=== PATIENT | male | born 1935 | race Caucasian/White ===

== ENCOUNTER 2021-06-06 23:14 | Observation (INO) | payer MEDICARE, OTHER ==
[~2021-06-06] VITALS: Ht 180.3 cm; Wt 80.2 kg
[2021-06-07 00:27] VITALS: BP 112/60
[2021-06-07] MEDS ORDERED: HYDROcodone/APAP 5/325MG 1 TAB TABLET PO PRN (00:30)
[2021-06-07 02:31] VITALS: BP 93/53
[2021-06-07 07:00] VITALS: BP 125/63
[2021-06-07] MEDS ORDERED: ACETAMINOPHEN 325 MG TABLET. PO PRN (08:30)
[2021-06-07] MEDS ORDERED: hydrALAZINE 20 MG/ML VIAL. IVP PRN (08:30)
[2021-06-07] MEDS ORDERED: ONDANSETRON PF 4 MG/2 ML VIAL. IVP PRN (08:30)
--- NOTE | 2021-06-07 08:31 | PDOC1 ---
History and Physical Date of Admission Date of Admission DATE: 06/07/21 TIME: 08:30 Identification/Chief Complaint Chief Complaint Confusion Source Source: Patient History of Present Illness History of Present Illness Mr Merino is an 85-year-old male with a past medical history significant for hypertension, hyperlipidemia and history of LLE stenting on on Xarelto who presents to the emergency department at [facility] in [place], [place] complaining of repeating himself and confusion. Per and daughter, patient last known well was 1300 on 06/06/21 in the afternoon. States that he was well, went outside to clean some snow off from around the house and when he came back inside confused and unable to answer questions appropriately. Denies any recent travel, traumas, illnesses, fevers, chest pain, abdominal pain, nausea, vomiting, diarrhea, dysuria, hematuria or blood in stool. Denies any alcohol or drug use. States he has been taking his medications as prescribed. 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 Menezes regularly who is his PCP. WBC 6.2, Hb 14.9, platelets 216, NA 142, K4.2, BUN 22, CR 1, glucose 72, lactic acid 1.3, LFTs within normal laboratory limits, history troponin is 10, albumin 3.5, INR 1.1, urinalysis bland, rapid COVID-19 negative, rapid influenza negative. EKG sinus rate of 60 bpm leftward axis otherwise normal intervals no ST segment elevations or depressions no TWI. Noncontrast CT head no acute hemorrhage. CTA head and neck with no large vessel occlusion Due to concern for new onset confusion patient was transferred to [facility] for neurologic evaluation. Seen bedside he has no focal neurologic deficits NIHSS is 0 for me and he recalls all the events 06/06/2021 and notes that he was repeating himself and that is the reason his sent him to the ED. 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 Past Medical History Cardiovascular: HTN, Hyperlipidemia Heme/Onc: Other (LLE PAD) Past Surgical History Past Surgical History: Tonsillectomy Family History Family History CVA Social History Smoke: No ALCOHOL: none Drugs: None Current Medications Current Medications Current Medications Acetaminophen/ Hydrocodone Bitart (Lortab 5/325) 1 tab PRN Q4HRS PRN PO MILD PAIN 1-3; Start 06/07/21 at 00:30 Allergies Allergies: Coded Allergies: No Known Drug Allergies (Unverified , 06/07/21) ROS General: No: Chills, Night Sweats, Fatigue, Malaise, Appetite, Other PSYCHOLOGICAL ROS: No: Anxiety, Behavioral Disorder, Concentration difficultie, Decreased libido, Depression, Disorientation, Hallucinations, Hostility, Irrita blity, Memory difficulties, Mood Swings, Obsessive thoughts, Physical abuse, Sexual abuse, Sleep disturbances, Suicidal ideation, Other Eyes: No Blurry vision, No Decreased vision, No Double vision, No Dry eyes, No Excessive tearing, No Eye Pain, No Itchy Eyes, No Loss of vision, No Photophobia, No Scotomata, No Uses contacts, No Uses glasses, No Other HEENT: No: Heacaches, Visual Changes, Hearing change, Nasal congestion, Nasal discharge, Oral lesions, Sinus pain, Sore Throat, Epistaxis, Sneezing, Snoring, Tinnitus, Vertigo, Vocal changes, Other ALLERGY AND IMMUNOLOGY: No: Hives, Insect Bite Sensitivity, Itchy/Watery Eyes, Nasal Congestion, Post Nasal Drip, Seasonal Allergies, Other Hematological and Lymphatic: No: Bleeding Problems, Blood Clots, Blood Transfusions, Brusing, Night Sweats, Pallor, Swollen Lymph Nodes, Other ENDOCRINE: No: Breast Changes, Galactorrhea, Hair Pattern Changes, Hot Flashes, Malaise/lethargy, Mood Swings, Palpitations, Polydipsia/polyuria, Skin Changes, Temperature Intolerance, Unexpected Weight Changes, Other Respiratory: No: Cough, Hemoptysis, Orthopnea, Pleuritic Pain, Shortness of breath, SOB with excertion, Sputum Changes, Stridor, Tachypnea, Wheezing, Other Cardiovascular: No Chest Pain, No Palpitations, No Orthopnea, No Paroxysmal Noc. Dyspnea, No Edema, No Lt Headedness, No Other Gastrointestinal: No Nausea, No Vomiting, No Abdominal Pain, No Diarrhea, No Constipation, No Melena, No Hematochezia, No Other Genitourinary: No Dysuria, No Frequency, No Incontinence, No Hematuria, No Retention, No Discharge, No Urgency, No Pain, No Flank Pain, No Other, No , No , No , No , No , No , No Musculoskeletal: No Gait Disturbance, No Joint Pain, No Joint Stiffness, No Joint Swelling, No Muscle Pain, No Muscular Weakness, No Pain In:, No Swelling In:, No Other Neurological: Yes Memory Loss; No Behavorial Changes, No Bowel/Bladder ControlChng, No Confusion, No Dizziness, No Gait Disturbance, No Headaches, No Impaired Coord/balance, No Numbness/Tingling, No Seizures, No Speech Problems, No Tremors, No Visual Changes, No Weakness, No Other Skin: No Dry Skin, No Eczema, No Hair Changes, No Lumps, No Mole Changes, No Mottling, No Nail Changes, No Pruritus, No Rash, No Skin Lesion Changes, No Other, No Acne Physical Exam General: Alert, Oriented X3, Cooperative, No acute distress HEENT: Atraumatic, PERRLA, EOMI, Mucous membr. moist/pink Lungs: Clear to auscultation, Normal air movement Heart: S1S2, RRR, no thrills, no rubs, no gallops, no murmurs Abdomen: Normal bowel sounds, Soft, No tenderness, No hepatosplenomegaly, No masses Rectal Exam: not examined Extremities: No clubbing, No cyanosis, No edema, Normal pulses, No tenderness/swelling Skin: No rashes, No breakdown, No significant lesion Neuro: Normal gait, Normal speech, Strength at 5/5 X4 ext, Normal tone, S ensation intact, Cranial nerves 3-12 NL, Reflexes 2+ Psych/Mental Status: Mental status NL, Mood NL Vitals Vitals Vital Signs Date Time Temp Pulse Resp B/P (MAP) Pulse Ox O2 Delivery O2 Flow Rate FiO2 06/07/21 07:00 97.6 57 16 125/63 (83) 98 Room Air 97.6 VTE Prophylaxis Ordered VTE Prophylaxis Devices: No VTE Pharmacological Prophylaxi: Yes Assessment/Plan Assessment/Plan A/P: Confusion - NIHSS 0 for me, likely transient global amnesia Dyspnea on exertion - has outpatient w/u. Negative cath in the last year Hypertension - cont home meds Hyperlipidemia - cont home meds History of LLE stenting on on Xarelto FEN - Regular diet PPX - ambulatory FULL CODE Dispo - observation Justifications for Admission Other Justification MICHELLE ARRIAGA MD Jun 07, 2021 08:31
[2021-06-07 11:00] VITALS: BP 125/70
[2021-06-07] MEDS ORDERED: RIVA10TA PO (11:56)
[2021-06-07] MEDS ORDERED: LEVO25TA4 PO (11:56)
[2021-06-07] MEDS ORDERED: ATOR40TA59 PO (11:56)
[2021-06-07] MEDS ORDERED: TAMS0.4C97 PO (11:56)
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
--- NOTE | 2021-06-07 14:06 | NUR ---
SS following for discharge planning. SS reviewed pt chart and discussed with pt RN. Pt is from home with spouse and is currently on room air. Neurology consulted. MRI ordered. SS will continue to follow for discharge planning.
[2021-06-07 14:56] VITALS: BP 121/65
--- NOTE | 2021-06-07 15:45 | RAD ---
MRI BRAIN WO History:Reason: transient global amnesia / Spl. Instructions: / History: Technique: Multiplanar, multi sequential MR imaging was performed of the brain without contrast. Comparison: None Findings: No acute infarct. No intracranial hemorrhage. No mass effect. No hydrocephalus. Mild brain parenchymal volume loss. Mild foci of FLAIR hyperintensities within the hemispheric white matter, most often due to chronic microvascular ischemia. Imaged orbits are unremarkable. Imaged paranasal sinuses and mastoid air cells are clear. Impression: 1. No acute intracranial abnormality. Electronically signed by: Vick Doll DO (06/07/2021 3:43 PM) [facility]
--- NOTE | 2021-06-07 17:21 | PDOC3 ---
Discharge Summary Brief Hospital Course Allergies Allergies Coded Allergies Type Severity Reaction Last Updated Verified No Known Drug Allergies 06/07/21 No Vital Signs Vital Signs Date Time Temp Pulse Resp B/P (MAP) Pulse Ox O2 Delivery O2 Flow Rate FiO2 06/07/21 14:56 97.6 76 20 121/65 (83) 98 Room Air 97.6 Brief Hospital Course Mr. Merino is a 85 old [sex] who presented with [ ] Discharge Information Scheduled Atorvastatin Calcium (Atorvastatin Calcium) 40 Mg Tablet, 1 TAB PO DAILY for high cholesterol , #30 Ref 5 (Reported) Entered as Reported by: LACHO TIRADO on 06/07/211155 Last Action: New Order on 06/07/211155 by LACHO TIRADO Levothyroxine Sodium (Levothyroxine Sodium) 25 Mcg Tablet, 10 MCG PO DAILYAC for THYROID SUPPLEMENT, #30 Ref 0 (Reported) Entered as Reported by: LACHO TIRADO on 06/07/211155 Last Action: New Order on 06/07/211155 by LACHO TIRADO Rivaroxaban (Xarelto) 10 Mg Tablet, 1 TAB PO DAILY for blood clot for 7 Days, #7 Ref 0 (Reported) Entered as Reported by: LACHO TIRADO on 06/07/211155 Last Action: New Order on 06/07/211155 by LACHO TIRADO Tamsulosin Hcl (Flomax) 0.4 Mg Cap.er.24h, 1 CAP PO DAILY for retention, #30 Ref 11 (Reported) Entered as Reported by: LACHO TIRADO on 06/07/211155 Last Action: New Order on 06/07/211155 by MICHELLE ANGELA MD Jun 07, 2021 17:21
--- NOTE | 2021-06-07 18:00 | NUR ---
Patient discharge home with self care today via wheelchair, accompanied by aid. Patient is stable, IV removed, and discharge paperwork given to patient. Patient verbalized understanding of followup and discharge instruction.
== END 2021-06-07 18:04 | disposition home or self-care (01) ==
LOC: INTOOBSV 23:14 → 6 SOUTH 23:14
PROVIDERS: ADMIT Internal Medicine; ATTEND Internal Medicine
DX: R41.0 Disorientation, unspecified (principal); R06.00 Dyspnea, unspecified; I10 Essential (primary) hypertension; I73.9 Peripheral vascular disease, unspecified; E78.5 Hyperlipidemia, unspecified; R29.700 NIHSS score 0; E78.00 Pure hypercholesterolemia, unspecified; G45.4 Transient global amnesia; I82.402 Acute embolism and thrombosis of unspecified deep veins of left lower extremity; Z79.01 Long term (current) use of anticoagulants; Z90.49 Acquired absence of other specified parts of digestive tract
CPT/HCPCS: 70551; G0378; G0379